=== PATIENT | male | born 1950 | race Caucasian/White ===

== ENCOUNTER 2017-06-07 07:59 | Day surgery (SDC) | payer BC ==
[~2017-06-07 07:59] MED LIST: Carbachol 0.01% IO ONE; Chondroitin/Hyaluronate Opth Syringe KIT (0.55 ml-0.5 ml) IO ONE; Ciprofloxacin 0.3% OPTH SOLN OD SCH; Cyclopentolate 1% Opth (2 ml) OD SCH; Flurbiprofen 0.03% Opht SOLN OD SCH; Hyaluronidase Human, Recombi 150 U/ML VIAL ONE; Lactated Ringer's 500 ML IV ONE; Lidocaine 2% Inj (20ml) ONE; Phenylephrine 2.5% Opht Soln OD SCH; Povidone Iodine Ophthalmic 5% Soln ONE; Tetracaine 0.5% Ophth (OR ONLY) ONE; Tropicamide 1% Opht SOLUTION OD SCH
[2017-06-07] MEDS ORDERED: Lactated Ringer's 500 ML IV ONE (09:00)
[2017-06-07] MEDS ORDERED: Midazolam 2 MG/2 ML VIAL ONE (10:40)
[2017-06-07 11:20] VITALS: RESP 18; TEMP 97
[2017-06-07 11:37] VITALS: BP 107/70; PULSE 62; O2SAT 97
--- NOTE | 2017-06-07 14:09 | OP ---
PROCEDURE DATE: 06/07/2017. PREOPERATIVE DIAGNOSIS: Cataract, right eye. POSTOPERATIVE DIAGNOSIS: Cataract, right eye. PROCEDURE: Phacoemulsification right eye with insertion of posterior chamber implant. SURGEON: Zurdo Garcia MD ANESTHESIA TYPE: Local intravenous sedation. PROCEDURE: The patient was brought into the operating room, placed in supine position, prepped and draped in the usual fashion for ophthalmic surgery. Lid speculum was inserted, lids and exposing globe. A side-port incision was made superiorly and inferiorly with a disposable sharp blade. Anterior chamber was filled with Viscoat. A near clear corneal incision was made temporally with a 2.75-mm keratome. Capsulorrhexis was then performed with Utrata forceps. Hydrodissection carried out with balanced salt solution. Nucleus was phacoemulsified. Remaining cortical fragments were removed with a split irrigation and aspiration system. The capsular sac was filled with Provisc. A posterior chamber lens was then injected into the capsular sac and rotated into horizontal position. Provisc was aspirated out of the anterior chamber. The pupil was constricted with Miochol. The wound was found to be watertight. Topical Betadine, Timoptic, and TobraDex ointment and pressure patch were applied. The patient tolerated the procedure well. Zurdo Garcia MD
== END 2017-06-07 11:44 | disposition home or self-care (01) ==
LOC: C.SDS 07:59
PROVIDERS: ATTEND Ophthalmology
DX: H26.9 Unspecified cataract (principal)
CPT/HCPCS: 66984; J2250; J3010; J3470; J7120; V2632

== ENCOUNTER 2017-07-05 09:01 | Day surgery (SDC) | payer BC ==
[~2017-07-05 09:01] MED LIST changes: -Ciprofloxacin 0.3% OPTH SOLN OD SCH; +Ciprofloxacin 0.3% OPTH SOLN OS SCH; -Cyclopentolate 1% Opth (2 ml) OD SCH; +Cyclopentolate 1% Opth (2 ml) OS SCH; -Flurbiprofen 0.03% Opht SOLN OD SCH; +Flurbiprofen 0.03% Opht SOLN OS SCH; -Phenylephrine 2.5% Opht Soln OD SCH; +Phenylephrine 2.5% Opht Soln OS SCH; +Tobramycin/Dexamethasone OPHT OINT ONE; -Tropicamide 1% Opht SOLUTION OD SCH; +Tropicamide 1% Opht SOLUTION OS SCH
[2017-07-05] MEDS ORDERED: Lactated Ringer's 1,000 ML IV ONE (10:15)
[2017-07-05] MEDS ORDERED: Midazolam 2 MG/2 ML VIAL ONE (11:38)
[2017-07-05 13:38] VITALS: RESP 16; O2SAT 96
[2017-07-05 13:42] VITALS: BP 131/76; PULSE 66; TEMP 97.6
--- NOTE | 2017-07-06 00:30 | OP ---
PROCEDURE DATE: 07/05/2017 PREOPERATIVE DIAGNOSIS: Mature cataract, left eye. POSTOPERATIVE DIAGNOSIS: Mature cataract, left eye. PROCEDURE: Phacoemulsification, left eye, with insertion of posterior chamber implant. SURGEON: Zurdo Garcia MD TYPE OF ANESTHESIA: Local IV sedation. PROCEDURE: The patient was brought into the operating room, placed in supine position, prepped and draped in the usual fashion for ophthalmic surgery. Lid speculum was inserted, lids and exposing globe. A side-port incision was made superiorly and inferiorly with a disposable sharp blade. Anterior chamber was filled with Viscoat. A near clear corneal incision was made temporally with a 2.75-mm keratome. Capsulorrhexis was then performed with Utrata forceps. Hydrodissection carried out with balanced salt solution. Nucleus was phacoemulsified. Remaining cortical fragments were removed with a split irrigation and aspiration system. The capsular sac was filled with Provisc. A posterior chamber lens was then injected into the capsular sac and rotated into horizontal position. Provisc was aspirated out of the anterior chamber. The pupil was constricted with Miochol. The wound was found to be watertight. Topical Betadine, Timoptic, and TobraDex ointment and pressure patch were applied. The patient tolerated the procedure well. Zurdo Garcia MD
== END 2017-07-05 13:30 | disposition home or self-care (01) ==
LOC: C.SDS 09:01
PROVIDERS: ATTEND Ophthalmology
DX: H25.043 Posterior subcapsular polar age-related cataract, bilateral (principal); H26.8 Other specified cataract
CPT/HCPCS: 66984; J2250; J3010; J3470; J7120